=== PATIENT | male | born 1935 | race Caucasian/White ===

== ENCOUNTER → 2016-09-21 | Outpatient (CLI) | payer OTHER ==
--- NOTE | 2016-09-21 12:10 | US ---
Bilateral Duplex/Doppler Carotid Sonography Clinical Indications: Carotid Screen, I 65.21 Technique: The cervical portions of the carotid and vertebral arteries were imaged and interrogated by color and pulsed Duplex/Doppler. Spectral analysis was performed. Findings: Right Carotid: Right CCA peak systolic velocity = 115 cm/sec Right ICA peak systolic velocity = 112 cm/sec Right ECA peak systolic velocity = 212 cm/sec Right ICA/CCA systolic velocity ratio = through 0.97 Velocities correlate to less than 50% diameter stenosis of the origin of the right internal carotid a rtery with respect to the normal distal internal carotid artery. Mild calcified plaque involving the right carotid bulb and proximal right internal carotid artery. Left Carotid: Left CCA peak systolic velocity = 82 cm/sec Left ICA peak systolic velocity = 107 cm/sec Left ECA peak systolic velocity = 176 cm/sec Left ICA/CCA systolic velocity ratio = 1.3 Velocities correlate to less than 50% diameter stenosis of the origin of the left internal carotid ar alejandro with respect to the normal distal internal carotid artery. Mild calcified plaque involving the l eft carotid bulb and proximal left internal carotid artery. Vertebral Arteries: Antegrade flow is shown by pulsed Doppler of each vertebral artery. Impression: 1. Mild atherosclerotic disease bilateral carotid bulbs. 2. Velocities correlate to less than 50% diameter stenosis of the origin of the right internal caroti d artery. 3. Velocities correlate to less than 50% diameter stenosis of the origin of the left internal carotid artery. 4. Bilateral vertebral arteries are patent with antegrade flow. Measurement of carotid stenosis is based on velocity parameters that correlate the residual internal carotid diameter with [place] Symptomatic Carotid Endarterectomy Trial (NASCET) based stenosis levels.
== END ==
LOC: BMCIMAGING 10:55
PROVIDERS: ATTEND Internal Medicine
DX: I65.21 Occlusion and stenosis of right carotid artery (principal)

== ENCOUNTER → 2016-11-06 | Outpatient (CLI) | payer OTHER | LOC: FIMAGING 13:52 | PROVIDERS: ATTEND Orthopaedic Surgery | DX: Z01.818 Encounter for other preprocedural examination (principal); M25.551 Pain in right hip; M16.11 Unilateral primary osteoarthritis, right hip; M51.36 Other intervertebral disc degeneration, lumbar region; M16.12 Unilateral primary osteoarthritis, left hip; R93.8 Abnormal findings on diagnostic imaging of other specified body structures ==

== ENCOUNTER 2016-11-16 09:45 | Inpatient (IN) | payer OTHER ==
[2016-11-30] MEDS ORDERED: DIAZEPAM 5 MG TAB PO PRN (07:16)
[2016-11-30] MEDS ORDERED: CYCLOBENZAPRINE 10 MG TAB PO PRN (07:16)
[2016-11-30] MEDS ORDERED: PHARMACY PAIN CONSULT 1 EA MISC PRN (07:16)
[2016-11-30] MEDS ORDERED: diphenhydrAMINE 25 MG CAP PO PRN (07:16)
[2016-11-30] MEDS ORDERED: oxyCODONE IR 5 MG TAB PO PRN (07:16)
[2016-11-30] MEDS ORDERED: METOCLOPRAMIDE 10 MG/2 ML VIAL IVP PRN (07:16)
[2016-11-30] MEDS ORDERED: MAGNESIUM HYDROXIDE 30 ML UDCUP PO PRN (07:16)
[2016-11-30] MEDS ORDERED: PROMETHAZINE HCL 25 MG SUPPR PR PRN (07:16)
[2016-11-30] MEDS ORDERED: TEMAZEPAM 15 MG CAP PO PRN (07:16)
[2016-11-30] MEDS ORDERED: DIPHENOXYLATE/ATROPINE LOMOTIL 1 TAB PO PRN (07:16)
[2016-11-30] MEDS ORDERED: POLYETHYLENE GLYCOL 3350 17 GM PKT PO PRN (07:16)
[2016-11-30] MEDS ORDERED: ONDANSETRON DISINTEGRATING 4 MG TAB PO PRN (07:16)
[2016-11-30] MEDS ORDERED: LACTULOSE 20 GM/30 ML UDCUP PO PRN (07:16)
[2016-11-30] MEDS ORDERED: ONDANSETRON 4 MG/2 ML VIAL IVP PRN (07:16)
[2016-11-30] MEDS ORDERED: BISACODYL 10 MG SUPP PR PRN (07:16)
[2016-11-30] MEDS ORDERED: LR 1,000 ML IV SCH (07:30)
[2016-11-30] MEDS ORDERED: ceFAZolin 1 GM/5 ML SYR ONE (07:42)
[2016-11-30] MEDS ORDERED: CITRATE DEXTROSE SOLN 500 ML BAG ONE (07:42)
[2016-11-30] MEDS ORDERED: LIDOCAINE 1% 2 ML INJ ONE (08:15)
[2016-11-30] MEDS ORDERED: LIDOCAINE 1% 5 ML SDV ID PRN (08:22)
[2016-11-30] MEDS ORDERED: LR 1,000 ML IV ONE (08:22)
[2016-11-30] MEDS ORDERED: FAMOTIDINE 20 MG TAB PO ONE (08:30)
[2016-11-30] MEDS ORDERED: ROPI/epiNEPH/KETOROLAC/morphINE JOINT COCKTAIL IU ONE (08:30)
[2016-11-30] MEDS ORDERED: CHLORHEXIDINE GLUC HIBICLENS 118 ML BTL TP ONE (08:30)
[2016-11-30] MEDS ORDERED: CEFAZOLIN 2 GM/DEXTR 100 ML IV ONE (08:30)
[2016-11-30] MEDS ORDERED: ACETAMINOPHEN 325 MG TAB PO ONE (08:30)
[2016-11-30] MEDS ORDERED: fentaNYL 100 MCG/2 ML INJ ONE (10:02)
[2016-11-30] MEDS ORDERED: PROPOFOL/EMULSION 500 MG/50 ML BOTTLE IV ONE (10:03)
[2016-11-30] MEDS ORDERED: epHEDrine SULFATE 10 MG/ML SYR ONE ×2 (11:31→11:39)
[2016-11-30] MEDS ORDERED: PROPOFOL 200 MG/20 ML VIAL ONE (11:42)
[2016-11-30 14:48] VITALS: RESP 16
[2016-11-30] MEDS: SENNOSIDES/DOCUSATE SODIUM TAB PO SCH ×2 (15:22→19:49)
[2016-11-30] MEDS: ACETAMINOPHEN 325 MG TAB PO SCH ×3 (15:23→23:06)
[2016-11-30] MEDS: ceFAZolin 2 GM/DEXTROSE 100 ML IV SCH ×2 (15:41→21:40)
[2016-11-30] MEDS: ASPIRIN 325 MG TAB PO SCH (19:49)
[2016-11-30] MEDS: FAMOTIDINE 20 MG TAB PO SCH (19:49)
[2016-12-01 05:12] LABS: HEMATOCRIT 37.2 % (40.0-51.0); HEMOGLOBIN 12.8 g/dL (13.7-17.5)
[2016-12-01] MEDS: ACETAMINOPHEN 325 MG TAB PO SCH ×2 (05:16→13:39)
[2016-12-01 07:33] VITALS: BP 113/51; TEMP 98.5
--- NOTE | 2016-12-01 08:03 | PDIAF ---
- Diagnosis Diagnosis: right hip djd Code Status: Full Code - Medication Management Discharge Medications: Medications to Continue on Transfer Naproxen Sodium [Aleve 220 MG (*)] 220 mg PO DAILY PRN 11/30/16 [Last Taken 1 Week Ago] Aspirin [Aspirin 325 mg (*)] 325 mg PO DAILY #0 tab 12/01/16 [Last Taken Unknown ] oxyCODONE IR [Oxycodone Ir (*)] 5 - 10 mg PO Q3HRS PRN #80 tab 12/01/16 [Last Taken Unknown] Discharge Medications: Refer to the Discharge Home Medication list for PRN reason. - Orders Services needed: Physical Therapy Diet Recommendation: no restrictions on diet Diet Texture: Regular Texture Diet Activity/Weight Bearing Restrictions: wbat. anterior hip precautions. daily dressing changes. no soaking. may shower without bandage. f/u at two weeks. seek attn for increasing pain, redness, or other focal complaint - Follow Up Care Current Providers and Referrals: Washington Holbrook MD [Primary Care Provider] -
[2016-12-01] MEDS: SENNOSIDES/DOCUSATE SODIUM TAB PO SCH (09:19)
[2016-12-01] MEDS: ASPIRIN 325 MG TAB PO SCH (09:19)
[2016-12-01] MEDS: FAMOTIDINE 20 MG TAB PO SCH (09:20)
[2016-12-01 10:05] VITALS: PULSE 67; O2SAT 95
--- NOTE | 2016-12-03 14:24 | GDS ---
[f rep st] DISCHARGE SUMMARY ADMISSION DIAGNOSIS: Right hip degenerative joint disease. DISCHARGE DIAGNOSIS: Right hip degenerative joint disease. PROCEDURE PERFORMED: Right total hip arthroplasty. 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 Clinical and radiographic features are consistent with this. I have recommended t otal hip replacement. He understood the risks, benefits, alternatives, and wished to proceed. Appr opriate consent was signed and placed in patient's chart. HOSPITAL COURSE: The patient was admitted to the hospital floor after undergoing uncomplicated tota l hip arthroplasty. He tolerated the procedure well. Postoperatively, there were no complications. At the time of transfer to a subacute nursing facility, he has been cleared by Physical Therapy. He understands his hip precautions. His incision is clean, dry, intact. His x-rays are stable, wit hout fracture or lucency. DISCHARGE ACTIVITIES: Weightbearing as tolerated. Anterior hip precautions. May shower without th e bandage. Daily dressing changes. No soaking or immersion. MANISH hose x2 weeks. DISCHARGE MEDICATIONS: Oxycodone 5 mg 1-2 every 6 hours p.r.n. pain and aspirin 325 mg p.o. daily f or 6 weeks. Follow up in 2 weeks. Seek attention for increasing redness, swelling, drainage, disch arge, or other focal complaint. /[id number]/MODL
--- NOTE | 2016-12-03 14:54 | GOP ---
[f rep st] OPERATIVE REPORT DATE OF OPERATION: 11/30/2016 SURGEON: Vicente Prabhakar MD [employer] ATTORNEY: Saurabh Jones, neurosurgical nurse practitioner, who was a medical necessity for the entirety of the case. PREOPERATIVE DIAGNOSIS: Right hip degenerative joint disease. POSTOPERATIVE DIAGNOSIS: Right hip degenerative joint disease. PROCEDURE PERFORMED: Right total hip arthroplasty. FINDINGS: SPECIMENS: To Pathology: The femoral head implants, the Dread Tritanium acetabular shell, size 5 8 mm, a Trident X3 0-degree polyethylene insert, 36 mm, Biolox Delta ceramic head, 36 mm, +0 mm neck length, Accolade 227-degree neck angle hip stem, size 5. INDICATIONS: The patient is an 81-year-old gentleman with end-stage arthritis to his right hip. He has interference with his activities of daily living. He has failed all attempts at conservative m anagement. I have, therefore, recommended total hip replacement. He understood the risks, benefits , alternatives, and wished to proceed. Written consent was signed and placed in patient's chart. DESCRIPTION OF PROCEDURE: The patient was identified in the preanesthesia area. The right hip garrett rly demarcated as the operative site with indelible marker. He was given 2 g of Ancef intravenously en route to the operative suite. In the OR, general endotracheal anesthesia was administered after a spinal block. He was positioned in the supine position. All bony prominences were well padded, including use of a bolster beneath his right hip. The pelvis and lower extremity were sterilely pre pped and draped in the usual fashion. Appropriate time-out procedure was carried out. Attention was first turned to the left hemipelvis. A 2 cm incision was made across the ASIS and 3 p ins were placed into the iliac crest. The pelvic reference array was affixed for the MAKOplasty pro tocol. Attention was turned to the right hip and anterior approach was made. This was carried thro ugh the skin and subcutaneous tissue, directly to the fascia over the tensor fascia daniela. This was opened in the origin of its fibers and elevated off the tensor. The tensor was retracted laterally. Underlying soft tissue was dissected and crossing vascular structures ligated, cauterized, and div ided. The rectus was elevated off the anterior capsule. Retractors were placed in the extracapsula r position. T was made in the capsule and the retractors were placed into an intracapsular position . A pelvic reference array was affixed. A bony napkin wedge was removed from the femoral neck and t he head was removed as well. The remnants of the acetabular labrum were sharply excised. Additiona l soft tissue release was carried out, given his high varus neck across the proximal capsule to faci litate movement of the femur. Retractors were placed, allowing excellent visualization of the acetabulum. The bony reference poin ts were entered into the computer. The pelvis was then reamed to a size 58 mm diameter in an openin g angle of 40 degrees and anteversion at 20 degrees. A 58 mm shell was then impacted. Confirmed to be fully seated. This was stable to interrogation. A 0 degree X3 liner was then placed and attent ion was turned to the femur. The femur was brought through the wound with extension of the table. Soft tissue releases and retractors placed across the proximal canal. The proximal canal was opened and broached to a size 5 stem. Trial reduction with a size 5 stem, 36 mm +0 mm neck length head re vealed appropriate leg-length anglican. Stability was intact with full extension external rotati on in 90 degrees of traction without subluxation or dislocation to the hip. The trial stem was withdrawn. A size 5 stem was then impacted and confirmed to be fully seated. Th e trunnion was cleansed and a 36 mm +0 mm neck length head was then placed across the trunnion and t he hip was copiously irrigated and the hip reduced. The soft tissues were instilled with a joint co cktail of ropivacaine, morphine, Toradol, and epinephrine. A Hemovac drain was placed. The fascia was closed using 0 Vicryl, subcutaneous tissue using 2-0 Vicryl. Sterile dressing was applied to deion th sides. The patient was awakened, extubated, taken recovery in good, stable condition. TOTAL TOURNIQUET TIME: None. COMPLICATIONS: None. DISPOSITION: To the recovery room, then the floor. /[id number]/MODL
== END 2016-12-01 14:53 | DRG 470 ==
LOC: F3N 11-30 07:35
PROVIDERS: ADMIT Orthopaedic Surgery; ATTEND Orthopaedic Surgery
PROC: 0SR90JZ Replacement of Right Hip Joint with Synthetic Substitute, Open Approach (ICD-10-PCS; principal; 2016-11-30 10:00)
DX: M16.11 Unilateral primary osteoarthritis, right hip (principal); M10.9 Gout, unspecified
CPT/HCPCS: 97110-GP; 97116-GP; 97161-GP; 97165-GO; G8978-GP-CK; G8979-GP-CI; G8987-GO-CK; G8988-GO-CI; J0171; J0690; J1885; J2704; J2795; J3010; J7060

== ENCOUNTER → 2017-01-13 | Outpatient (CLI) | payer OTHER | LOC: BMCIMAGING 10:44 | PROVIDERS: ATTEND Physician Assistant | DX: Z47.89 Encounter for other orthopedic aftercare (principal); Z96.641 Presence of right artificial hip joint; M16.12 Unilateral primary osteoarthritis, left hip ==